=== PATIENT | male | born 1990 | race Caucasian/White ===

== ENCOUNTER 2017-05-04 16:27 | Emergency (ER) | payer OTHER ==
[2017-05-04 16:50] VITALS: BP 124/68; PULSE 71; RESP 16; TEMP 98.2; O2SAT 96
--- NOTE | 2017-05-04 17:51 | EDPHY ---
H & P Smoking Status: Never smoked Time Seen by Provider: 05/04/17 17:07 HPI/ROS: CHIEF COMPLAINT: Bodily fluid exposure HISTORY OF PRESENT ILLNESS: 26-year-old male presents to the emergency department with bodily fluid exposure. He works with [employer] and was on a call for rescue and got the source is blood on his extremities. He sustained abrasions from some nearby branches. He did not inhale anything. He denies pain in his chest or difficulty breathing. He believes his tetanus shot is current. REVIEW OF SYSTEMS: Constitutional: No fever, no chills. Eyes: No double or blurry vision. ENT: No sore throat. Respiratory: No cough, no shortness of breath. Cardiac: No chest pain. Gastrointestinal: No abdominal pain, vomiting or diarrhea. Genitourinary: No dysuria. Musculoskeletal: No neck or back pain. Skin: No rashes. Neurological: No headache. (Melissa Brice) Past Medical/Surgical History: Negative (Melissa Brice) Social History: Single (Melissa Brice) Physical Exam: General Appearance: Alert, no distress. Eyes: Pupils equal and round. Extraocular motions are all intact. ENT: Mouth: Mucous membranes moist. Respiratory: No wheezing, rhonchi, or rales, lungs are clear to auscultation. Cardiovascular: Regular rate and rhythm. Gastrointestinal: Abdomen is soft and nontender, no masses, no rebound or guarding, bowel sounds normal. Neurological: Alert and oriented x 3, cranial nerves II through XII grossly intact Skin: Warm and dry, no rashes. Superficial abrasions to the anterior volar aspect of both arms. Musculoskeletal: Nontender to palpate along the cervical, thoracic or lumbar spine. Neck is supple. Extremities: Full range of motion and no peripheral edema. Psychiatric: Patient is oriented X 3, there is no agitation. (Melissa Brice) Constitutional: Initial Vital Signs Temperature (C) 36.8 C 05/04/17 16:47 Heart Rate 71 05/04/17 16:47 Respiratory Rate 16 05/04/17 16:47 Blood Pressure 124/68 H 05/04/17 16:47 O2 Sat (%) 96 05/04/17 16:47 O2 Delivery Mode Room Air Allergies/Adverse Reactions: amoxicillin Allergy (Verified 05/04/17 16:46) Home Medications: Medication Instructions Recorded NK [No Known Home Meds] 05/04/17 Medical Decision Making ED Course/Re-evaluation: 26-year-old male presents to the emergency department with bodily fluid exposure. Sources blood who was a trauma patient in the emergency department was negative for HIV. The patient requested HIV, hepatitis-B and C testing which is pending and he will follow-up with Occup[facility]. (Melissa Brice) Differential Diagnosis: Including but not limited to bodily fluid exposure, retained foreign body, cellulitis (Melissa Brice) Other Provider: The patient was evaluated and managed by the Physician Blending Technician. My co- signature indicates that I have reviewed this chart and I agree with the findings and plan of care as documented. I am the secondary supervising physician. (Asiya Griffin) Departure - Departure Disposition: Home, Routine, Self-Care Clinical Impression: bodily fluid exposure Condition: Good Instructions: Body Substance Exposure (ED) Additional Instructions: Return if you have any change in symptoms or if you feel worse in any way. Call [phone] for the results of your blood work in 48 hr. Referrals: Work Comp Ref/Restrictions [Outside] - As per Instructions
[2017-05-06 03:19] LABS: HEPATITIS C ANTIBODY TOTAL NEGATIVE (NEGATIVE); HIV TYPE 1 AND 2 NEGATIVE (NEGATIVE)
== END 2017-05-04 18:12 | disposition home or self-care (01) ==
DX: Z77.21 Contact with and (suspected) exposure to potentially hazardous body fluids (principal)
CPT/HCPCS: G0472

== ENCOUNTER 2017-07-28 14:10 | Emergency (ER) | payer OTHER ==
[2017-07-28 14:21] VITALS: BP 132/85
--- NOTE | 2017-07-28 14:57 | EDPHY ---
H & P Time Seen by Provider: 07/28/17 14:39 HPI/ROS: CHIEF COMPLAINT: Left thumb skin avulsion HISTORY OF PRESENT ILLNESS: 26-year-old male with up-to-date tetanus complaining of left distal thumb skin avulsion after was working in his garage door chain which was stuck and the chain suddenly jerked sustaining a superficial skin avulsion. Superficial. Currently bleeding. Occurred shortly prior to arrival. Was Accidental. PHYSICAL EXAM (Prior to examination, patient consented to physical exam, hands were washed and my usual and customary physical exam procedures followed) 1) GENERAL: Well-developed, well-nourished, alert and oriented. Appears to be in no acute distress. 2) HEAD: Normocephalic 3) HEENT: sclera anicteric 4) LUNGS: Breathing comfortably. 5) SKIN: Left thumb distal phalanx superficial skin avulsion with slow active capillary like bleeding. 6) MUSCULOSKELETAL: Flexion extension at the MCP and IP intact. 7) NEUROLOGIC: Full sensation distally. Smoking Status: Never smoked Constitutional: Initial Vital Signs Temperature (C) 37.1 C 07/28/17 14:19 Heart Rate 91 07/28/17 14:19 Respiratory Rate 18 07/28/17 14:19 Blood Pressure 132/85 H 07/28/17 14:19 O2 Sat (%) 97 07/28/17 14:19 O2 Delivery Mode Room Air Allergies/Adverse Reactions: amoxicillin Allergy (Verified 05/04/17 16:46) Home Medications: Medication Instructions Recorded NK [No Known Home Meds] 05/04/17 MDM/Departure - MDM Procedures: Procedure: Digital nerve block Indication: Analgesia prior to cleaning and Surgicel placement Patient consented to medication and procedure. Using my usual and customary technique 1% plain lidocaine administered by myself he digital block achieving anesthesia distally. Patient tolerated procedure well. Procedure: Surgicel placed Indication: Superficial skin avulsion After the digit was anesthetized Surgicel placed by ER staff resulting in hemostasis. ED Course/Re-evaluation: I saw this patient independently based on established practice protocols. Care of patient under supervision of secondary supervising physician Dr Crandall. - Depart Disposition: Home, Routine, Self-Care Clinical Impression: Avulsion of skin of left thumb Qualifiers: Encounter type: initial encounter Qualified Code(s): S61.002A - Unspecified open wound of left thumb without damage to nail, initial encounter Condition: Good Instructions: Skin Avulsion (ED) Additional Instructions: Return to the ER if you develop redness, swelling, discharge, warmth to the wound, red streaks going up your arm, or any other symptoms that concern you. Referrals: Min Pabon MD [Medical Doctor] - 5-7 days, call for appt.
== END 2017-07-28 15:12 | disposition home or self-care (01) ==
PROC: 3E0T3BZ Introduction of Anesthetic Agent into Peripheral Nerves and Plexi, Percutaneous Approach (ICD-10-PCS; principal; 2017-07-28)
DX: S61.002A Unspecified open wound of left thumb without damage to nail, initial encounter (principal); W22.8XXA Striking against or struck by other objects, initial encounter; Y92.69 Other specified industrial and construction area as the place of occurrence of the external cause; Y99.0 Civilian activity done for income or pay; Y93.89 Activity, other specified